=== PATIENT | female | born 1995 | race Caucasian/White ===

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

== ENCOUNTER 2017-01-27 13:39 | Emergency (ER) | payer OTHER ==
[~2017-01-27] VITALS: Ht 162.5 cm; Wt 89.8 kg
[~2017-01-27 13:39] MED LIST changes: +DELTASONE20 M1 PO; +DIFLUCAN150 MG PO
[2017-01-27 13:54] VITALS: BP 139/74
== END 2017-01-27 14:46 | disposition left against medical advice (07) ==
LOC: ED 13:39
DX: N93.9 Abnormal uterine and vaginal bleeding, unspecified (principal); F17.200 Nicotine dependence, unspecified, uncomplicated; Z88.6 Allergy status to analgesic agent; Z79.899 Other long term (current) drug therapy

== ENCOUNTER 2017-02-06 14:03 | Emergency (ER) | payer OTHER ==
[~2017-02-06] VITALS: Ht 162.5 cm; Wt 89.8 kg
[2017-02-06 14:26] VITALS: BP 127/83
[2017-02-06] MEDS ORDERED: PROVENTIL HFA6.7 GM INH (15:49)
== END 2017-02-06 15:50 | disposition home or self-care (01) ==
LOC: ED 14:03
DX: J40 Bronchitis, not specified as acute or chronic (principal); G89.29 Other chronic pain; M41.9 Scoliosis, unspecified; F17.200 Nicotine dependence, unspecified, uncomplicated; Z87.442 Personal history of urinary calculi; Z79.899 Other long term (current) drug therapy; Z88.6 Allergy status to analgesic agent

== ENCOUNTER 2017-03-21 14:36 | Emergency (ER) | payer OTHER ==
[~2017-03-21] VITALS: Ht 162.5 cm; Wt 85.3 kg
[~2017-03-21 14:36] MED LIST changes: +PROVENTIL HFA6.7 GM INH
[2017-03-21 14:46] VITALS: BP 135/79
[2017-03-21] MEDS ORDERED: AMOXICILLIN875 MG PO (15:51)
[2017-03-21] MEDS ORDERED: Motrin,Rufen800 MG PO (15:51)
== END 2017-03-21 15:57 | disposition home or self-care (01) ==
LOC: ED 14:36
DX: H66.91 Otitis media, unspecified, right ear (principal); F17.200 Nicotine dependence, unspecified, uncomplicated; Z79.899 Other long term (current) drug therapy; Z88.5 Allergy status to narcotic agent